=== PATIENT | female | born 1940 | race African-American/Black ===

== ENCOUNTER → 2017-12-19 | Outpatient (CLI) | payer OTHER ==
[~2017-12-19] MED LIST: CENTRUM MEN'S1 EACH PO
== END | disposition home or self-care (01) ==
LOC: LAB 08:49
DX: C20 Malignant neoplasm of rectum (principal); K62.5 Hemorrhage of anus and rectum; R59.0 Localized enlarged lymph nodes; K59.09 Other constipation

== ENCOUNTER → 2017-12-19 | Outpatient (CLI) | payer OTHER | END | disposition home or self-care (01) | LOC: RAD 08:55 | DX: C20 Malignant neoplasm of rectum (principal); K62.5 Hemorrhage of anus and rectum; R59.0 Localized enlarged lymph nodes; K59.09 Other constipation ==

== ENCOUNTER 2017-12-26 06:00 | Day surgery (SDC) | payer OTHER ==
[2017-12-26] MEDS ORDERED: PERCOCET 5-3251 EACH PO (08:04)
== END 2017-12-26 10:25 | disposition home or self-care (01) ==
LOC: CIR.AMB 06:00
DX: C20 Malignant neoplasm of rectum (principal)
CPT/HCPCS: 36578; C1751

== ENCOUNTER 2018-03-30 07:30 | Day surgery (SDC) | payer OTHER ==
[~2018-03-30 07:30] MED LIST changes: +PERCOCET 5-3251 EACH PO
== END 2018-03-30 12:21 | disposition home or self-care (01) ==
LOC: AMB-ENDOS 07:30
DX: C20 Malignant neoplasm of rectum (principal)

== ENCOUNTER 2019-04-19 08:30 | Day surgery (SDC) | payer OTHER | END 2019-04-19 12:05 | disposition home or self-care (01) | LOC: CIR.AMB 08:30 → AMB-ENDOS 08:30 → CIR.AMB 12:15 | DX: C20 Malignant neoplasm of rectum (principal); Z93.3 Colostomy status ==

== ENCOUNTER → 2020-04-12 | Outpatient (CLI) | payer OTHER | END | disposition home or self-care (01) | LOC: OFIC 805 09:33 | PROVIDERS: ATTEND Otolaryngology | DX: H91.8X3 Other specified hearing loss, bilateral (principal); R42 Dizziness and giddiness ==

== ENCOUNTER 2020-06-26 08:35 | Day surgery (SDC) | payer OTHER | END 2020-06-26 12:57 | disposition home or self-care (01) | LOC: AMB-ENDOS 08:35 | PROVIDERS: ATTEND Surgery | DX: K62.89 Other specified diseases of anus and rectum (principal); Z93.3 Colostomy status; Z20.822 Contact with and (suspected) exposure to COVID-19 ==

== ENCOUNTER 2020-06-27 15:24 | Outpatient (CLI) | payer OTHER | END 2020-06-27 17:13 | disposition home or self-care (01) | LOC: OFIC 805 15:24 | PROVIDERS: ATTEND Otolaryngology | DX: R42 Dizziness and giddiness (principal); H90.3 Sensorineural hearing loss, bilateral ==

== ENCOUNTER 2020-06-30 05:35 | Day surgery (SDC) | payer OTHER ==
[2020-06-30] MEDS ORDERED: ULTRACET PO (09:53)
== END 2020-06-30 12:45 | disposition home or self-care (01) ==
LOC: CIR.AMB 05:35
PROVIDERS: ATTEND Surgery
DX: C20 Malignant neoplasm of rectum (principal); Z20.822 Contact with and (suspected) exposure to COVID-19
CPT/HCPCS: 36561; C1751

== ENCOUNTER 2020-10-19 13:30 | Outpatient (CLI) | payer OTHER ==
[~2020-10-19 13:30] MED LIST changes: +ULTRACET PO
== END 2020-10-19 13:57 | disposition home or self-care (01) ==
LOC: OFIC 805 13:30
PROVIDERS: ATTEND Otolaryngology
DX: H91.8X9 Other specified hearing loss, unspecified ear (principal); R42 Dizziness and giddiness